=== PATIENT | male | born 1980 | race African-American/Black ===

== ENCOUNTER 2019-12-25 19:04 | Emergency (ER) | payer MEDICAID ==
[~2019-12-25] VITALS: Ht 188 cm; Wt 74.8 kg
[2019-12-25 19:50] VITALS: BP 130/84
--- NOTE | 2019-12-25 19:52 | NUR ---
Nurse Note: Pt walked in c/o RT side rib pain that radiates to lower back since AM. Pt stated he was reaching above his head and "felt like a really strong charliehorse". Pt stated 10/10 pain. No efforts of pain relief
[2019-12-25] MEDS ORDERED: Methocarbamol 750mg tab ORAL ONE (20:00)
[2019-12-25] MEDS ORDERED: Ketorolac 30mg Inj IM ONE (20:00)
--- NOTE | 2019-12-25 20:06 | NUR ---
Nurse Note: All meds given and tolerated well. Pt transported to CT
--- NOTE | 2019-12-25 20:24 | Emergency Room Report ---
History of Present Illness General Chief Complaint: Back Pain-No Injury Source: Patient Present Illness HPI 39-year-old male with no known past medical history here crying complaining of right-sided lumbar pain radiating to anterior ribs. Patient was assessed that he was trying to reach for something that was really high up and felt like something pulled on his side. Denies any direct fall or injury. Denies any chest pain shortness of breath. Denies any abdominal pain, nausea vomiting. Denies any tingling numbness. Has been applying patches to the area to help with the pain. Denies being on any blood thinners. Rates the pain 10 out of 10 at this time. Reports that ibuprofen makes her stomach upset however is okay taking injectable NSAIDs. Denies flank pain, fever and chills, nausea vomiting, urinary symptoms Allergies: Coded Allergies: IBUPROFEN (Verified Allergy, Unknown, 12/25/19) COVID-19 Screening Contact w/high risk pt: No Experienced COVID-19 symptoms?: No COVID-19 Testing performed CIVIL DESIGNER: No Patient History Past Medical History: see triage record Past Surgical History: none Pertinent Family History: none Immunizations: UTD Reviewed Nursing Documentation: PMH: Agreed; PSxH: Agreed Nursing Documentation-PMH Past Medical History: No Stated History Review of Systems All Other Systems: negative except mentioned in HPI Physical Exam Vital Signs Date Time Temp Pulse Resp B/P (MAP) Pulse Ox O2 Delivery O2 Flow Rate FiO2 12/25/19 19:09 98.4 72 16 130/84 (99) 98 Room Air Sp02 EP Interpretation: reviewed, normal General Appearance: no apparent distress, alert, GCS 15, non-toxic Head: normocephalic, atraumatic Eyes: bilateral eye normal inspection, bilateral eye PERRL ENT: hearing grossly normal, normal pharynx, no angioedema, normal voice Neck: full range of motion, supple/symm/no masses Respiratory: chest non-tender, lungs clear, normal breath sounds, no rhonchi, no respiratory distress, no retraction, speaking full sentences Cardiovascular #1: regular rate, rhythm, no edema, no murmur Cardiovascular #2: 2+ carotid (R), 2+ carotid (L), 2+ radial (R), 2+ radial (L), 2+ dorsalis pedis (R), 2+ dorsalis pedis (L) Gastrointestinal: normal bowel sounds, non tender, soft, non-distended, no guarding, no rebound Genitourinary: no CVA tenderness Musculoskeletal: back normal, digits/nails normal, no calf tenderness, pelvis stable, no lower extremity edema, non-tender Neurologic: alert, motor strength/tone normal, oriented x3, sensory intact, r esponsive, speech normal Psychiatric: judgement/insight normal, memory normal, mood/affect normal, no suicidal/homicidal ideation Skin: no rash Lymphatic: no adenopathy Medical Decision Making PA Attestation All my diagnosis and treatment plans were reviewed ad discussed with [facility] Dr. Nunes Diagnostic Impression: Primary Impression: Lumbar strain Additional Impressions: Arthritis Emphysema (subcutaneous) (surgical) resulting from a procedure ER Course 39-year-old male with no known past medical history here crying complaining of right-sided lumbar pain radiating to anterior ribs. Patient was assessed that he was trying to reach for something that was really high up and felt like something pulled on his side. Denies any direct fall or injury. Denies any chest pain shortness of breath. Denies any abdominal pain, nausea vomiting. Denies any tingling numbness. Has been applying patches to the area to help with the pain. Denies being on any blood thinners. Rates the pain 10 out of 10 at this time. Reports that ibuprofen makes her stomach upset however is okay taking injectable NSAIDs. Denies flank pain, fever and chills, nausea vomiting, urinary symptoms Ddx considered but are not limited to: Lumbar spine sprain, strain, fracture, contusion, neuropathy Vital signs: are WNL, pt. is afebrile H&PE are most consistent with: lumbar strain ORDERS: Lumbar spine CT, Chest CT no contrast , tylenol, robaxin, lidocaine p atch, albuterol ER intervention: Toradol IM, robaxin DISCHARGE: At this time pt. is stable for d/c to home. Will provide printed patient care instructions, and any necessary prescriptions. Care plan and follow up instructions have been discussed with the patient prior to discharge. Take medication as directed, avoid strenuous physical activity, follow primary care provider, if worsening symptoms return to the emergency room. Follow-up with primary care doctor and product management analyst regarding emphysema. CT/MRI/US Diagnostic Results CT/MRI/US Diagnostic Results #1: Imaging Test Ordered: CT L spine no contrast Impression TECHNIQUE: Axial computed tomography images of the lumbar spine without intravenous contrast. CTDI is 10.5 mGy and DLP is 426 mGy-cm. One or more of the following dose reduction techniques were used: automated exposure control, adjustment of the mA and/or kV according to patient size, use of iterative reconstruction technique. Coronal and sagittal reformatted images were created and reviewed. COMPARISON: No relevant prior studies available. FINDINGS: Vertebrae: No evidence for lumbar spine fracture. The vertebral alignment is normal. Mild degenerative changes at T11-T12 and T12-L1 manifested by small anterior osteophytes. Discs/spinal canal/neural foramina: No acute findings. Soft tissues: Unremarkable. Lungs: Mild atelectasis at the dependent aspects of the lungs. IMPRESSION: No evidence for lumbar spine fracture. CT/MRI/US Diagnostic Results #2: Imaging Test Ordered: CT chest no contrast Impression FINDINGS: Lungs: Emphysematous changes in the lungs. Pleural space: No evidence for significant pleural effusion. No evidence for pneumothorax. Heart: Unremarkable. No cardiomegaly. No significant pericardial effusion. Bones/joints: No evidence for acute fracture. Degenerative changes of the thoracic spine. No dislocation. Soft tissues: Unremarkable. Vasculature: Evaluation for intrathoracic injury is limited without IV contrast. The vascular structures cannot be adequately evaluated without IV contrast. No thoracic aortic aneurysm. Lymph nodes: Unremarkable. No enlarged lymph nodes. Other findings: Mild focal thickening of the minor fissure. IMPRESSION: Emphysematous changes in the lungs. No definite CT evidence for acute intrathoracic injury. Evaluation for intr athoracic injury is limited without IV contrast. Last Vital Signs Date Time Temp Pulse Resp B/P (MAP) Pulse Ox O2 Delivery O2 Flow Rate FiO2 12/25/19 19:50 98.4 78 16 130/84 98 Room Air Disposition: HOME, SELF-CARE Condition: Stable Scripts Lidocaine Patch* (Lidoderm Patch*) 1 Each Adh..patch 1 PATCH TOPIC DAILY, #30 PATCH Patch(es) may remain in place for up to 12 hours in any 24-hour period. Prov: Rufino Ibrahim 12/25/19 Methocarbamol* (ROBAXIN-500*) 500 Mg Tablet 500 MG ORAL TID PRN for For Pain, #15 TAB 0 Refills Prov: Rufino Ibrahim 12/25/19 Acetaminophen* (TYLENOL EXTRA STRENGTH*) 500 Mg Tablet 500 MG ORAL Q8H PRN for Prn Headache/Temp > 101, #30 TAB 0 Refills Prov: Rufino Ibrahim 12/25/19 Referrals: NON PHYSICIAN (PCP) Patient Instructions: Chronic Obstructive Pulmonary Disease, Lumbosacral Strain Additional Instructions: Take medication as directed, avoid strenuous physical activity, follow primary care provider, if worsening symptoms return to the emergency room, follow-up with product management analyst regarding emphysema. Rufino Ibrahim Dec 25, 2019 20:24
--- NOTE | 2019-12-25 20:26 | NUR ---
Nurse Note: PT back to room. No signs of distress noted currently. All safety measures met; will continue to montior.
[2019-12-25] MEDS ORDERED: TYLENOL EXTRA500 MG ORAL (20:30)
[2019-12-25] MEDS ORDERED: ROBAXIN-500MG ORAL (20:30)
[2019-12-25] MEDS ORDERED: LIDODERM700 M1 TOPIC (20:30)
--- NOTE | 2019-12-25 20:50 | Diagnostic Imaging Report ---
EXAM: CT Lumbar Spine Without Intravenous Contrast CLINICAL HISTORY: TRAUMA TECHNIQUE: Axial computed tomography images of the lumbar spine without intravenous contrast. CTDI is 10.5 mGy and DLP is 426 mGy-cm. One or more of the following dose reduction techniques were used: automated exposure control, adjustment of the mA and/or kV according to patient size, use of iterative reconstruction technique. Coronal and sagittal reformatted images were created and reviewed. COMPARISON: No relevant prior studies available. FINDINGS: Vertebrae: No evidence for lumbar spine fracture. The vertebral alignment is normal. Mild degenerative changes at T11-T12 and T12-L1 manifested by small anterior osteophytes. Discs/spinal canal/neural foramina: No acute findings. Soft tissues: Unremarkable. Lungs: Mild atelectasis at the dependent aspects of the lungs. IMPRESSION: No evidence for lumbar spine fracture.
--- NOTE | 2019-12-25 21:02 | Diagnostic Imaging Report ---
EXAM: CT Chest Without Intravenous Contrast CLINICAL HISTORY: TRAUMA TECHNIQUE: Axial computed tomography images of the chest without intravenous contrast. CTDI is 5.7 mGy and DLP is 220 mGy-cm. One or more of the following dose reduction techniques were used: automated exposure control, adjustment of the mA and/or kV according to patient size, use of iterative reconstruction technique. COMPARISON: No relevant prior studies available. FINDINGS: Lungs: Emphysematous changes in the lungs. Pleural space: No evidence for significant pleural effusion. No evidence for pneumothorax. Heart: Unremarkable. No cardiomegaly. No significant pericardial effusion. Bones/joints: No evidence for acute fracture. Degenerative changes of the thoracic spine. No dislocation. Soft tissues: Unremarkable. Vasculature: Evaluation for intrathoracic injury is limited without IV contrast. The vascular structures cannot be adequately evaluated without IV contrast. No thoracic aortic aneurysm. Lymph nodes: Unremarkable. No enlarged lymph nodes. Other findings: Mild focal thickening of the minor fissure. IMPRESSION: Emphysematous changes in the lungs. No definite CT evidence for acute intrathoracic injury. Evaluation for intrathoracic injury is limited without IV contrast.
[2019-12-25] MEDS ORDERED: VENTOLIN HFA18 GM INH (21:04)
[2019-12-25 21:15] VITALS: BP 128/80
--- NOTE | 2019-12-25 21:15 | NUR ---
ER DISCHARGE NOTE: Patient is cleared to be discharged per ERMD. Pt is aox4, on room air, with stable vital signs. Pt was given dc and prescription instructions, pt was able to verbalize understanding, instructed pt to follow up with primary care physican within 3-5 days. Pt id band removed without complications. Pt is able to ambulate with steady gait. Pt took all belongings.
== END 2019-12-25 21:15 | disposition home or self-care (01) ==
LOC: EMR 19:52
DX: S39.012A Strain of muscle, fascia and tendon of lower back, initial encounter (principal); M19.90 Unspecified osteoarthritis, unspecified site; J43.9 Emphysema, unspecified; Z88.6 Allergy status to analgesic agent; J98.11 Atelectasis; X50.9XXA Other and unspecified overexertion or strenuous movements or postures, initial encounter; Y92.9 Unspecified place or not applicable
CPT/HCPCS: 71250; 72131; 96372; J1885; Z7502; 99284